=== PATIENT | male | born 1980 | race Caucasian/White ===

== ENCOUNTER 2016-10-05 23:26 | Emergency (ER) | payer OTHER ==
[~2016-10-05] VITALS: Ht 182.9 cm; Wt 83.9 kg
[2016-10-05] MEDS ORDERED: PHENERGAN IM STA (23:58)
[2016-10-05] MEDS ORDERED: DEMEROL IM STA (23:58)
--- NOTE | 2016-10-05 23:58 | ER.PDOC ---
General Chief Complaint: Fever Stated Complaint: FEVER,MIGRAINE Time seen by MD: 23:52 Source: patient Exam Limitations: no limitations History of Present Illness Initial Comments Pt started with fever, headache, nausea and vomiting yesterday. Pt has a history of migraines Timing/Duration: abrupt Severity: severe Associated Symptoms: fever/chills, headache Allergies: Coded Allergies: No Known Allergies (Unverified , 10/05/16) Constitutional: see HPI EENTM: see HPI Respiratory: see HPI Cardiovascular: see HPI Gastrointestinal: see HPI Genitourinary: see HPI Musculoskeletal: see HPI Skin: see HPI Psychiatric/Neurological: see HPI Endocrine: see HPI Hematologic/Lymphatic: see HPI Past Medical History Medical History: other Surgical History: appendectomy, knee, shoulder, tonsillectomy Social History Smoking: other Alcohol Use: none Drug Use: none Physical Exam General Appearance: alert, no distress Eye: eyes nml inspection, lids & conjunct. nml, PERRL, no nystagmus Ear: ear nml Nose: nose nml Throat: pharynx nml, airway nml Neck: nml inspection, supple Respiratory: no resp.distress, breath sounds nml Abdomen: non-tender, no organomegaly CVS: reg rate & rhythm, heart sounds nml Skin: color nml, no rash, warm/dry Extremities: non-tender, nml ROM, no pedal edema NEURO/PSYCH: oriented x 3, CN's nml as tested, motor nml, sensation nml, mood/ affect nml Results/Orders Results/Orders Laboratory Tests Test 10/05/16 00:02 10/06/16 00:41 Influenza Virus Type A Antibody Negative (NEG) Influenza Virus Type B Antibody Negative (NEG) Group A Streptococcus Screen Negative (NEGATIVE) Administered Medications Medications (Trade) Dose Ordered Sig/Alphonso Route PRN Reason Start Time Stop Time Status Last Admin Dose Admin Meperidine HCl (Demerol) 50 mg STAT STAT IM 10/05/16 23:58 10/05/16 23:59 DC 10/06/16 00:18 Promethazine HCl (Phenergan) 25 mg STAT STAT IM 10/05/16 23:58 10/05/16 23:59 DC 10/06/16 00:19 Tramadol HCl (Ultram) 50 mg STAT STAT PO 10/06/16 01:00 10/06/16 01:02 DC 10/06/16 01:02 Departure Time of Disposition: 01:25 Disposition: 01 HOME, SELF-CARE Impression: Primary Impression: Fever Additional Impressions: Influenza-like illness Migraine Condition: Stable Patient Instructions: Haemophilus influenzae type b Conjugate Vaccine injection , Migraine Headache Referrals: PCP,UNKNOWN (PCP) PRIMARY CARE PROVIDER MORALES GAMING MD Oct 05, 2016 23:57
[2016-10-06 00:15] LABS: INFLUENZA VIRUS A ANTIBODY NEGATIVE (NEG); INFLUENZA VIRUS B ANTIBODY NEGATIVE (NEG)
[2016-10-06] MEDS ORDERED: DEMEROL ONE (00:16)
[2016-10-06] MEDS ORDERED: PHENERGAN ONE (00:16)
--- NOTE | 2016-10-06 00:44 | NUR ---
STREP SCREEN TO LAB
[2016-10-06] MEDS ORDERED: ULTRAM ONE (00:59)
[2016-10-06] MEDS ORDERED: ULTRAM PO STA (01:00)
[2016-10-06 01:38] VITALS: BP 128/68
== END 2016-10-06 01:45 | disposition home or self-care (01) ==
LOC: ER 23:26
DX: G43.909 Migraine, unspecified, not intractable, without status migrainosus (principal); J11.1 Influenza due to unidentified influenza virus with other respiratory manifestations
CPT/HCPCS: 86710; 87070; 87880; 96372 ×2; 99284; A4628; J2175; J2550